=== PATIENT | male | born 1955 | race Caucasian/White ===

== ENCOUNTER 2021-02-12 07:55 | Day surgery (SDC) | payer BC, MEDICARE ==
[2021-02-10 10:35] LABS: BASOPHILS % (AUTO) 0.7 % (0.0-2.0); EOSINOPHILS % (AUTO) 3.6 % (1.0-6.0); HEMATOCRIT 38.4 % (41-53); HEMOGLOBIN 12.7 g/dL (13.5-17.5); LYMPHOCYTES # (AUTO) 1.3 K/uL (1.0-4.8); LYMPHOCYTES % (AUTO) 27.1 % (22.0-44.0); MEAN CORPUSCULAR HEMOGLOBIN 30.3 pg (26.0-34.0); MEAN CORPUSCULAR HGB CONC 33.1 G/dL (31.0-37.0); MEAN CORPUSCULAR VOLUME 92 fL (80-100); MONOCYTES # (AUTO) 0.4 K/uL (0.1-1.0); MONOCYTES % (AUTO) 8.2 % (2.0-9.0); NEUTROPHILS # (AUTO) 2.9 K/uL (1.8-7.7); NEUTROPHILS % (AUTO) 60.4 % (40.0-70.0); PLATELET COUNT (AUTO) 148 K/uL (150-450); RED BLOOD CELL COUNT(AUTO) 4.18 MIL/uL (4.50-5.90); RED CELL DISTRIBUTION WIDTH 14.5 % (11.5-14.5)
[2021-02-10 10:39] LABS: COVID AG,FIA SOURCE NASOPHARYNGEAL
[2021-02-10 10:48] LABS: PROTHROMBIN TIME 10.6 SEC (9.4-11.6)
[2021-02-10 10:52] LABS: ANION GAP 8 mmol/L (8-16); CALCIUM, TOTAL 9.1 mg/dL (8.8-10.5); CARBON DIOXIDE 27 mmol/L (22-29); CHLORIDE 104 mmol/L (98-107); CREATININE 0.99 mg/dL (0.60-1.30); GLOMERULAR FILTR. RATE CALC > 60 mL/min (>60); GLUCOSE,RANDOM 240 mg/dL (70-110); POTASSIUM 4.7 mmol/L (3.5-5.1); SODIUM SERUM 139 mmol/L (136-145); UREA NITROGEN, BLOOD 21 mg/dL (7-18)
[~2021-02-12] VITALS: Ht 171.4 cm; Wt 61.8 kg
[~2021-02-12 07:55] MED LIST: ASPI-1444 PO; CARV12 PO; EMPA10TA PO; METF-960 PO; SODIUM CHLORIDE 0.9% 1,000 ML ONE
[2021-02-12] MEDS ORDERED: SODIUM CHLORIDE 0.9% 1,000 ML IV ONE ×2 (08:00→12:00)
[2021-02-12 09:01] LABS: GLUCOMETER DEV NAME(LOC) SDS.; GLUCOSE,POINT OF CARE 221 MG/DL (70-110)
[2021-02-12] MEDS ORDERED: IOHEXOL 300 MG/ML 150 ML VIAL ONE (09:23)
[2021-02-12] MEDS ORDERED: SODIUM BICARBONATE 50 MEQ/50 ML VIAL ONE (09:23)
[2021-02-12] MEDS ORDERED: HEPARIN SODIUM 1000 UNITS/NS 1,000 ML ONE (09:23)
[2021-02-12] MEDS ORDERED: LIDOCAINE/PF 1% 30 ML VIAL ONE (09:23)
[2021-02-12 10:06] VITALS: BP 168/68
[2021-02-12] MEDS ORDERED: VERAPAMIL HCL 2.5 MG/ML 2 ML VIAL ONE (10:23)
[2021-02-12] MEDS ORDERED: NITROGLYCERIN 50 MG/D5% WATER 250 ML ONE (10:23)
[2021-02-12] MEDS ORDERED: MIDAZOLAM HCL 2 MG/2 ML VIAL ONE ×2 (10:26→10:46)
[2021-02-12] MEDS ORDERED: FentaNYL CITRATE PF 100 MCG/2 ML VIAL ONE (10:26)
[2021-02-12] MEDS ORDERED: HEPARIN SODIUM,PORCINE 5,000 UNITS/ML VIAL IVP ONE (11:15)
[2021-02-12] MEDS ORDERED: MIDAZOLAM HCL 2 MG/2 ML VIAL IVP ONE ×2 (11:15)
[2021-02-12] MEDS ORDERED: FentaNYL CITRATE PF 100 MCG/2 ML VIAL IVP ONE ×2 (11:15)
[2021-02-12] MEDS ORDERED: NITROGLYCERIN/D5W 50 MG/250 ML IV BOTTLE ICOR ONE (11:15)
[2021-02-12] MEDS ORDERED: SODIUM CHLORIDE 0.9% 250 ML IV ONE (11:15)
[2021-02-12] MEDS ORDERED: VERAPAMIL HCL 2.5 MG/ML 2 ML VIAL IARTER ONE (11:15)
[2021-02-12] MEDS ORDERED: HEPARIN SODIUM 1000 UNITS/NS 1,000 ML IARTER ONE (11:15)
[2021-02-12] MEDS ORDERED: IOHEXOL 300 MG/ML 150 ML VIAL IARTER ONE (11:15)
[2021-02-12] MEDS ORDERED: LIDOCAINE 1% 30 ML/SOD BICARB 8.4% 4 ML SQ ONE (11:15)
[2021-02-12] MEDS ORDERED: NITROGLYCERIN/D5W 50 MG/250 ML IV BOTTLE IARTER ONE (11:15)
[2021-02-12] MEDS ORDERED: VERAPAMIL HCL 2.5 MG/ML 2 ML VIAL ICOR ONE (11:15)
[2021-02-12 11:30] VITALS: BP 150/63
[2021-02-12] MEDS ORDERED: HYDROCODONE/ACETAMINOPHEN 5-325 MG TABLET PO PRN (12:00)
[2021-02-12] MEDS ORDERED: ACETAMINOPHEN 325 MG TABLET PO PRN (12:00)
== END 2021-02-12 15:00 | disposition home or self-care (01) ==
LOC: CATHLAB 07:55
PROVIDERS: ATTEND Internal Medicine Cardiovascular Disease
DX: R94.39 Abnormal result of other cardiovascular function study (principal); I25.10 Atherosclerotic heart disease of native coronary artery without angina pectoris; I25.82 Chronic total occlusion of coronary artery; I50.20 Unspecified systolic (congestive) heart failure; I44.7 Left bundle-branch block, unspecified; E11.29 Type 2 diabetes mellitus with other diabetic kidney complication; E78.2 Mixed hyperlipidemia; I42.9 Cardiomyopathy, unspecified; F17.290 Nicotine dependence, other tobacco product, uncomplicated; Z20.822 Contact with and (suspected) exposure to COVID-19; Z79.82 Long term (current) use of aspirin; Z79.899 Other long term (current) drug therapy
CPT/HCPCS: 36415; 80048; 82962; 85025; 85610; 85730; 87426; 93005; 93458; 99152; 99153; C9803; J1644; J2250; J3010; J3490 ×4; J7030; Q9967

== ENCOUNTER → 2021-03-26 | Day surgery (SDC) | payer BC ==
[2021-03-25 09:27] LABS: COVID AG,FIA SOURCE NASOPHARYNGEAL
[2021-03-25 09:35] LABS: BASOPHILS % (AUTO) 0.9 % (0.0-2.0); EOSINOPHILS % (AUTO) 3.4 % (1.0-6.0); HEMATOCRIT 41.2 % (41-53); HEMOGLOBIN 13.8 g/dL (13.5-17.5); LYMPHOCYTES # (AUTO) 1.6 K/uL (1.0-4.8); LYMPHOCYTES % (AUTO) 26.6 % (22.0-44.0); MEAN CORPUSCULAR HEMOGLOBIN 31.4 pg (26.0-34.0); MEAN CORPUSCULAR HGB CONC 33.5 G/dL (31.0-37.0); MEAN CORPUSCULAR VOLUME 94 fL (80-100); MONOCYTES # (AUTO) 0.6 K/uL (0.1-1.0); MONOCYTES % (AUTO) 9.2 % (2.0-9.0); NEUTROPHILS # (AUTO) 3.6 K/uL (1.8-7.7); NEUTROPHILS % (AUTO) 59.9 % (40.0-70.0); PLATELET COUNT (AUTO) 164 K/uL (150-450); RED CELL DISTRIBUTION WIDTH 13.5 % (11.5-14.5)
[2021-03-25 09:38] LABS: ANION GAP 8 mmol/L (8-16); CALCIUM, TOTAL 8.6 mg/dL (8.8-10.5); CARBON DIOXIDE 28 mmol/L (22-29); CHLORIDE 102 mmol/L (98-107); CREATININE 0.96 mg/dL (0.60-1.30); GLOMERULAR FILTR. RATE CALC > 60 mL/min (>60); GLUCOSE,RANDOM 230 mg/dL (70-110); POTASSIUM 5.2 mmol/L (3.5-5.1); SODIUM SERUM 138 mmol/L (136-145); UREA NITROGEN, BLOOD 16 mg/dL (7-18)
[2021-03-25 09:42] LABS: PROTHROMBIN TIME 10.3 SEC (9.4-11.6)
[2021-03-25 09:44] LABS: ALANINE AMINOTRANSFERASE 18 U/L (12-78); ALBUMIN 3.8 g/dL (3.4-5.0); ALKALINE PHOSPHATASE 77 U/L (46-116); ASPARTATE AMINOTRANSFERASE 16 U/L (15-37); BILIRUBIN,TOTAL 0.6 mg/dL (0.1-1.0); TOTAL PROTEIN, SERUM 7.1 g/dL (6.4-8.2)
[~2021-03-26] VITALS: Ht 175.3 cm; Wt 63.6 kg
[~2021-03-26] MED LIST changes: +0.9% SODIUM CHLORIDE 10 ML SYRINGE IVP ONE; +0.9% SODIUM CHLORIDE 10 ML VIAL IVP ONE; +AMIODARONE HCL 50 MG/ML 3 ML VIAL ONE; +CALCIUM CHLORIDE 100 MG/ML 10 ML SYRINGE IVP ONE; -CARV12 PO; +CARV12.530 PO; +DOPamine 400MG/D5W[STANDARD] 250 ML IV ONE; +DOPamine 400MG/D5W[STANDARD] 250 ML IV PRN; +EPHEDrine SULFATE 50 MG/ML VIAL IM ONE; +EPINEPHrine 1:10,000 [1 MG/10 ML] SYRINGE ONE; +EPINEPHrine 2 MG in DEXTROSE 5%-WATER 248 ML IV PRN; +FentaNYL CITRATE PF 100 MCG/2 ML VIAL IVP ONE; +HEPARIN SODIUM 1000 UNITS/NS 1,000 ML IARTER ONE; +HEPARIN SODIUM 1000 UNITS/NS 1,000 ML ONE; +HEPARIN SODIUM 1000 UNITS/NS 500 ML ONE; +HEPARIN SODIUM,PORCINE 5,000 UNITS/ML VIAL IVP ONE; +IOHEXOL 300 MG/ML 100 ML VIAL IARTER ONE; +IOHEXOL 300 MG/ML 100 ML VIAL ONE; +IOHEXOL 300 MG/ML 150 ML VIAL IARTER ONE; +IOHEXOL 300 MG/ML 150 ML VIAL ONE; +IOHEXOL 300 MG/ML 50 ML VIAL IARTER ONE; +IOHEXOL 300 MG/ML 50 ML VIAL ONE; +KETAMINE HCL 50 MG/ML 10 ML VIAL IVP ONE; +LIDOCAINE 1% 30 ML/SOD BICARB 8.4% 4 ML SQ ONE; +LIDOCAINE/PF 1% 30 ML VIAL ONE; +LIDOCAINE/PF 2% 5 ML SYRINGE IVP ONE; +LIDOCAINE/PF 2% 5 ML VIAL IM ONE; +LOSA25TA21 PO; +METF-446 PO; -METF-960 PO; +MIDAZOLAM HCL 2 MG/2 ML VIAL IVP ONE; +NITROGLYCERIN 50 MG/D5% WATER 250 ML ONE; +PHENYLEPHRINE 200 MG/D5%-WATER 250 ML IV PRN; +PROPOFOL 1% 20 ML VIAL IVP ONE; +PROPOFOL 1000 MG/ISO-OSM 200 ML ONE; +PROTAMINE SULFATE 10 MG/ML 5 ML VIAL IVP ONE; +RINGERS SOLUTION,LACTATED 1,000 ML IV ONE; +ROCURONIUM BROMIDE 10 MG/ML 5 ML VIAL ONE; +SODIUM BICARBONATE 50 MEQ/50 ML VIAL ONE; +SODIUM BICARBONATE [ADULT] 8.4% 50 MEQ/50 ML SYRINGE IVP ONE; +SODIUM CHLORIDE 0.9% 1,000 ML IV ONE; +VERAPAMIL HCL 2.5 MG/ML 2 ML VIAL ONE
[2021-03-26 06:33] LABS: GLUCOMETER DEV NAME(LOC) SDS.; GLUCOSE,POINT OF CARE 189 MG/DL (70-110)
[2021-03-26 07:35] VITALS: BP 135/69
[2021-03-26 11:53] LABS: ABG A-A DIFF O2 224.4 mmHg (10-20.0); ABG BASE EXCESS -5.1 mmol/L (-2.0-3.0); ABG CARBOXYHEMOGLOBIN 0.3 % (0.0-1.5); ABG HCO3 20.3 mmol/L (22.0-26.0); ABG METHEMOGLOBIN 0.3 % (0.0-1.5); ABG OXYGEN CONTENT 18.5 mL/dL (15.0-23.0); ABG OXYGEN SATURATION 99.1 % (95.0-98.0); ABG OXYHEMOGLOBIN 98.5 % (94.0-100.0); ABG PCO2 47 mmHg (35-45); ABG PH 7.281 (7.35-7.450); ABG TOTAL HEMOGLOBIN 12.5 G/dL (12.0-18.0); PO2, ARTERIAL BG 441.1 mmHg (79.0-87.0); SOURCE, BLOOD GAS ARTERIAL; TEMPERATURE, FAHRENHEIT, BG 98.9 FAHREN (96.0-98.6)
[2021-03-26 11:54] LABS: SITE, BLOOD GAS OTHER
[2021-03-26 12:39] VITALS: BP 126/96
[2021-03-26 12:54] LABS: GLUCOMETER DEV NAME(LOC) SDS.; GLUCOSE,POINT OF CARE 234 MG/DL (70-110)
== END | disposition home or self-care (01) ==
LOC: CATHLAB 05:18
PROVIDERS: ATTEND Internal Medicine Cardiovascular Disease
DX: I25.118 Atherosclerotic heart disease of native coronary artery with other forms of angina pectoris (principal); I25.82 Chronic total occlusion of coronary artery; E78.5 Hyperlipidemia, unspecified; I25.5 Ischemic cardiomyopathy; E11.29 Type 2 diabetes mellitus with other diabetic kidney complication; I50.20 Unspecified systolic (congestive) heart failure; E78.2 Mixed hyperlipidemia; F17.210 Nicotine dependence, cigarettes, uncomplicated; Z79.82 Long term (current) use of aspirin; Z79.899 Other long term (current) drug therapy; I44.7 Left bundle-branch block, unspecified
CPT/HCPCS: 33016; 33210; 33990; 36415 ×2; 80053; 82805; 82962; 85025; 85610; 85730; 86850; 86900; 86901; 87426; 93005; 93308; 93451; C1714; C1769; C1874; C1887; C9600; C9602; C9803; J0171 ×2; J0282; J0690; J1265; J1644; J2250; J2370; J2704 ×2; J2720; J3010; J3490 ×11; J7030; J7060; J7120; Q9967 ×3; 33216; 37229; 76000; 92920; 92928; 93503; Z7610